=== PATIENT | male | born 1975 | race Two or more races ===

== ENCOUNTER 2023-12-04 09:55 | Emergency (ER) | payer OTHER, SELFPAY ==
--- NOTE | ~2023-12-04 | XR_ITS ---
EXAMINATION: XR HAND/WRIST, RIGHT CLINICAL INFORMATION: Pain and swelling COMPARISON: None available. TECHNIQUE: PA, lateral, and oblique views of the right hand and wrist. FINDINGS: Multiple views of the right hand and multiple views of the right wrist are obtained which show normal bone density. Joint spaces are preserved. Carpal alignment is normal. Small amount of dystrophic calcification is seen related to the triquetrum and pisiform. No fracture or joint effusion. Dedicated view of the scaphoid shows no abnormality. XR/XR hand wrist RT IMPRESSION: Unremarkable Electronically signed by: Geovanni Persaud MD 12/04/2023 11:32 AM EDT
[2023-12-04 10:04] VITALS: BP 135/88; PULSE 66; RESP 16; TEMP 37; O2SAT 99; BMI 20.7
--- NOTE | 2023-12-04 12:47 | ED.EXTPRO ---
HPI - Extremity Problem General Chief complaint: Extremity Problem Stated complaint: r hand pain/swelling-broken prior Time Seen by Provider: 12/04/23 12:24 Source: patient, RN notes reviewed and old records reviewed Mode of arrival: ambulatory History of Present Illness ED Provider: Kristin Carlson PA-C HPI Narrative: 47-year-old male with no significant past medical history presenting to the ED complaining of right hand/wrist pain and swelling since waking this morning. Admits took Motrin without relief. Denies recent injury/trauma or fall. Denies numbness, tingling, weakness, fever/chills. Denies gout history Related Data Previous Rx's ?Medication ?Instructions ?Recorded acetaminophen 500 mg tablet 500 mg PO Q6H PRN fever or pain 12/04/23 (Tylenol Extra Strength) #14 tabs naproxen 500 mg tablet 500 mg PO BID PRN pain 10 days #20 12/04/23 tabs prednisone 20 mg tablet 40 mg (2 x 20 mg) PO DAILY 5 days 12/04/23 #10 tabs Allergies Allergy/AdvReac Type Severity Reaction Status Date / Time No Known Allergies Allergy Verified 12/04/23 10:05 Review of Systems Review of Systems: Yes all other systems are reviewed and are negative Constitutional: Constitutional: Reports as per [facility] Past Medical History Attestation statement: The following information was validated with the patient. Source: old records reviewed Social History Social History Advance Directives: No Advance Directives Information Provided: No Physical Exam Vital Signs: Vital Signs: Last Vital Signs Temp 98.6 F 12/04/23 10:04 Pulse 66 12/04/23 10:04 Resp 16 12/04/23 10:04 BP 135/88 12/04/23 10:04 Pulse Ox 99 12/04/23 10:04 O2 Del Method Room Air 12/04/23 10:04 BMI result Body Mass Index 20.7 Const: General: cooperative, healthy appearing and no acute distress Orientation/consciousness: patient oriented x3 Limitations: no limitations HEENT: Head: Yes normal to inspection and Yes atraumatic Ears: hearing grossly normal bilaterally General nose exam: Normal external nose present Face and sinus: Yes normal facial exam Eyes: General: appearance normal, both eyes and all related structures EOM: EOMs intact bilaterally Neck: Neck: Yes normal visual inspection and Yes no meningeal signs Resp: Effort & Inspection: normal respiratory effort and no respiratory distress Cardio: Rate: regular rate Skin: Rashes: no rashes Wounds: no wounds Neuro: General: patient oriented x3, tone normal and no meningeal signs Cranial nerves: Yes CN's II-XII intact bilaterally Gait exam (Neuro): Normal gait present Extrem: Other: Right wrist ulnar aspect with appreciable swelling and tenderness. Limited ROM to wrist secondary to pain. Digit ROM intact. Neurovascularly intact. No fluctuance/induration, erythema/warmth or crepitus. No snuffbox tenderness Course Course Course Narrative: XR hand wrist RT IMPRESSION: Unremarkable > velcro volar wrist splint applied. Will treat for suspected gout. Results discussed with patient including worrisome signs and symptoms and strict return precautions, and when to return to the emergency department. They verbalized understanding and feel safe for discharge at this time. Medical Decision Making Medical Decision Making MDM Narrative: 47-year-old male with no significant past medical history presenting to the ED complaining of right hand/wrist pain and swelling since waking this morning. On exam vital signs stable, NAD, nontoxic appearing, physical exam as noted above. Concern for fracture vs strain vs gout. No evidence of cellulitis or infection. Low suspicion for septic joint/arthritis or abscess Plan: X-rays, pain control Please refer to course for remaining clinical decision making, interpretation of labs/imaging results, and discussions with consultants and/or family members. Differential Diagnosis Differential Diagnoses: The differential diagnosis associated with the presentation includes As above Independent Interpretation I performed an independent interpretation of an: Plain X-Ray Radiology Impression Discussion of test interpretation with radiology: I have reviewed the radiologist's reading. Independent Historian Clinical information obtained from an independent historian. History obtained from or confirmed by: Other External Record Review External record reviewed: Inpatient record, Office record, Outpatient record, Prior outpatient labs, Prior outpatient radiology, Primary care record and Outside ED record Tests considered The following testing was considered but not selected: As above Prescription Management I considered prescription management with: Pain Medication Procedures Orthopedic Splinting/Casting Injury #1: Side: right Upper Extremity Injury Location: wrist Upper Extremity Immobilizer: volar splint Discharge Plan Discharge Clinical Impression: Gout, Acute pain of right wrist Patient Disposition: Home, Self-Care Instructions: Gout (ED) Additional Instructions: Your x-rays unremarkable Prednisone in steroid, please take as prescribed In addition naproxen anti-inflammatory/pain medication, take with food. You should also take Tylenol Wear volar Velcro splint as needed Follow up with her doctor If symptoms persist or worsen area begins to look infected, is red or warm return to the ED Prescriptions: New prednisone 20 mg tablet 40 mg PO DAILY 5 Days Qty: 10 0RF acetaminophen [Tylenol Extra Strength] 500 mg tablet 500 mg PO Q6H PRN (Reason: fever or pain) Qty: 14 0RF naproxen 500 mg tablet 500 mg PO BID PRN (Reason: pain) 10 Days Qty: 20 0RF Referrals: Physician,None [Primary Care Provider] - 5 days Print Language: Greek
[2023-12-04] MEDS: Ketorolac Tromethamine 30 MG/ML VIAL IM (13:04)
[2023-12-04 13:07] VITALS: BP 135/88; PULSE 66; RESP 16; TEMP 37; O2SAT 99
== END 2023-12-04 13:08 | disposition home or self-care (01) ==
PROVIDERS: Emergency Provider Emergency Medicine
DX: M10.9 Gout, unspecified (principal); M25.531 Pain in right wrist
CPT/HCPCS: 73110; 73130; 96372; 99283; 99284; J1885